=== PATIENT | male | born 1975 | race African-American/Black ===

== ENCOUNTER 2016-11-21 08:34 | Inpatient (IN) | payer MEDICAID, OTHER ==
[~2016-11-21] VITALS: Ht 175.3 cm; Wt 71.0 kg
[2016-11-21] MEDS ORDERED: morphine 4 MG/ML VIAL IV STA ×2 (09:01→12:50)
[2016-11-21] MEDS ORDERED: SOD CHLORIDE 0.9% 1,000 ML IV STA (09:01)
[2016-11-21] MEDS ORDERED: ONDANSETRON 4 MG INJ IV STA ×2 (09:01→12:50)
[2016-11-21 09:30] LABS: BASOPHIL # 0.1 10^3/ul (0.0-0.1); BASOPHILS % 0.8 % (0.0-2.0); EOSINOPHILS # 0.1 10^3/ul (0.0-0.5); EOSINOPHILS % 1.4 % (0.0-7.0); HEMATOCRIT 45.7 % (42.0-52.0); HEMOGLOBIN 15.6 g/dl (14.0-18.0); LYMPHOCYTES # 2.2 10^3/ul (0.8-2.9); LYMPHOCYTES % 34.1 % (15.0-51.0); MEAN CORPUSCULAR HEMOGLOBIN 28.7 pg (29.0-33.0); MEAN CORPUSCULAR HGB CONC 34.3 g/dl (32.0-37.0); MEAN CORPUSCULAR VOLUME 83.6 fl (82.0-101.0); MEAN PLATELET VOLUME 7.3 fl (7.4-10.4); MONOCYTE # 0.3 10^3/ul (0.3-0.9); MONOCYTES % 4.5 % (0.0-11.0); NEUTROPHIL # 3.8 10^3/ul (1.6-7.5); NEUTROPHILS % 59.2 % (39.0-77.0); PLATELET COUNT 303 10^3/UL (140-440); RED BLOOD COUNT 5.46 10^6/ul (4.70-6.10); RED CELL DISTRIBUTION WIDTH 14.9 % (11.5-14.5); UNCORRECTED WBC 6.5 10^3/ul (4.8-10.8); WHITE BLOOD COUNT 6.5 10^3/ul (4.8-10.8)
[2016-11-21 09:33] LABS: ALBUMIN 4.3 g/dl (3.3-4.9); POTASSIUM 3.8 mmol/L (3.5-5.1)
[2016-11-21 09:35] LABS: CONDITION 1; LH ANALYZER COMMENTS 1
[2016-11-21 09:36] LABS: ALBUMIN/GLOBULIN RATIO 1.07; BILIRUBIN,INDIRECT 0.4 mg/dl (0-1.1); BILIRUBIN,TOTAL 0.4 mg/dl (0.2-1.3); CALCIUM 9.3 mg/dl (8.4-10.2); CREATININE 0.9 mg/dl (0.61-1.24); TOTAL PROTEIN 8.3 g/dl (6.1-8.1)
--- NOTE | 2016-11-21 09:50 | RADRPT ---
PROCEDURE: US Abdomen (right upper quadrant). CLINICAL INDICATION: Right upper quadrant abdomen pain. TECHNIQUE: Multiple real-time longitudinal and transverse images of the right upper quadrant of th e abdomen were acquired utilizing a curved array transducer. Images were reviewed on a high-resoluti on PACS workstation. COMPARISON: None FINDINGS: The liver is normal in size and echogenicity. There is no focal hepatic lesion. Color Doppler and pulsed Doppler sonography demonstrate normal a ntegrade flow in the portal vein. The gallbladder is normal with no stones or wall thickening. There is no pericholecystic fluid araceli ection. The bile ducts are normal with the common bile duct measuring 4.3 mm in diameter. The visualized portions of the pancreas are unremarkable with obscuration of the tail of the pancrea s. No free fluid is present. The right kidney measures 10.0 cm. There is normal echogenicity of the right kidney. There is no perinephric fluid collection. No hydronephrosis, mass, or calculus is seen. IMPRESSION: 1. Unremarkable right upper quadrant abdomen ultrasound. RPTAT: QQ .Endy Cunningham MD, MD Date Time Electronically viewed and signed by .Endy Cunningham MD, on 11/21/2016 09:50 .R/
--- NOTE | 2016-11-21 10:32 | ERD ---
ER Documentation Chief Complaint Date/Time DATE: 11/21/16 TIME: 10:27 Chief Complaint abdominal pain since last night HPI Patient is a 41-year-old male who presents to the ED with abdominal pain that started last night. He states that the pain is localized in his epigastric region he denies radiation of pain. He states that he has had this pain in the past, was hospitalized for pancreatitis. He denies nausea, vomiting or diarrhea. He denies constipation. He is not taking anything for his symptoms. Denies chest pain, cough or shortness of breath or difficulty breathing. He denies urinary symptoms. He states that he has a history of alcohol abuse x 10 years. He is trying to cut down on his drinking. States he drinks about 8-10 beers a day. He also has daily marijuana use and 1 pack of cigarettes/day. He denies IV drugs. ROS All systems reviewed and are negative except as per history of present illness. Allergies Allergies: Coded Allergies: No Known Allergy (Unverified , 07/05/16) PMhx/Soc History of Surgery: No Anesthesia Reaction: No Hx Neurological Disorder: No Hx Respiratory Disorders: No Hx Cardiac Disorders: No Hx Psychiatric Problems: No Hx Miscellaneous Medical Probl: Yes (pancreatitis) Hx Alcohol Use: Yes (8-10 beers/day) Hx Substance Use: Yes (daily marijuana) Hx Tobacco Use: Yes (1 pack/day) Smoking Status: Current every day smoker Physical Exam Vitals Vital Signs Date Time Temp Pulse Resp B/P Pulse Ox O2 Delivery O2 Flow Rate FiO2 11/21/16 08:40 97.9 61 18 134/82 100 Physical Exam GENERAL: Well-developed, well-nourished male. Appears in no acute distress. HEAD: Normocephalic, atraumatic. EYES: Pupils are equally reactive bilaterally. EOMs grossly intact. No conjunctival erythema. ENT: Moist mucous membranes. No uvula deviation. No kissing tonsils. No exudates. NECK: Supple. No lymphadenopathy or thyromegaly. No meningismus. negative kernig. negative brudinski. LUNG: Clear to auscultation bilaterally. No rhonchi, wheezing, rales or coarse breath sounds. HEART: Regular rate and rhythm. No murmurs, rubs or gallops. ABDOMEN: No scars, ecchymosis or rashes noted. Soft, and nondistended. Positive bowel sounds in all four quadrants. No rebound tenderness, no guarding. (-) McBurneys point tenderness. No CVA tenderness. tender in epigastric and ruq. BACK: No midline tenderness. Extremities: Equal pulses bilaterally. No peripheral clubbing, cyanosis or edema. No unilateral leg swelling. NEUROLOGIC: Alert and oriented. Moving all four extremities. 5/5 strength in all extremities. Normal speech. Steady gait. SKIN: Normal color. Warm and dry. No rashes or lesions. Capillary refill < 2 seconds Result Diagram: 11/21/1612 11/21/1612 Results 24 hrs Laboratory Tests Test 11/21/16 09:12 11/21/16 10:50 Alanine Aminotransferase (ALT/SGPT) 36IU/L Albumin 4.3g/dl Albumin/Globulin Ratio 1.07 Alkaline Phosphatase 75IU/L Anion Gap 16 Aspartate Amino Transf (AST/SGOT) 44IU/L Basophils # 0.110^3/ul Basophils % 0.8% Blood Morphology Comment Blood Urea Nitrogen 10mg/dl Calcium Level 9.3mg/dl Carbon Dioxide Level 26mmol/L Chloride Level 102mmol/L Creatinine 0.90mg/dl Direct Bilirubin 0.00mg/dl Eosinophils # 0.110^3/ul Eosinophils % 1.4% Globulin 4.00g/dl Glucose Level 111mg/dl Hematocrit 45.7% Hemoglobin 15.6g/dl Indirect Bilirubin 0.4mg/dl Lipase 303U/L Lymphocytes # 2.210^3/ul Lymphocytes % 34.1% Mean Corpuscular Hemoglobin 28.7pg Mean Corpuscular Hemoglobin Concent 34.3g/dl Mean Corpuscular Volume 83.6fl Mean Platelet Volume 7.3fl Monocytes # 0.310^3/ul Monocytes % 4.5% Neutrophils # 3.810^3/ul Neutrophils % 59.2% Nucleated Red Blood Cells # 0.010^3/ul Nucleated Red Blood Cells % 0.0/100WBC Platelet Count 55439^3/UL Potassium Level 3.8mmol/L Red Blood Count 5.4610^6/ul Red Cell Distribution Width 14.9% Sodium Level 140mmol/L Total Bilirubin 0.4mg/dl Total Protein 8.3g/dl White Blood Count 6.510^3/ul Urine Bilirubin NEGATIVE Urine Clarity CLEAR Urine Color LT. YELLOW Urine Glucose NEGATIVE% Urine Hemoglobin NEGATIVE Urine Ketones NEGATIVE Urine Leukocyte Esterase NEGATIVE Urine Nitrite NEGATIVE Urine Specific [place] 1.020 Urine Total Protein NEGATIVE Urine Urobilinogen 0.2 E.U./dL Urine pH 6.0 Current Medications Medications (Trade) Dose Ordered Sig/Fatuma Route PRN Reason Start Time Stop Time Status Last Admin Dose Admin Sodium Chloride (NS) 1,000 ml @ 1,000 mls/hr Q1H STAT IV 11/21/16 09:01 11/21/16 10:00 DC 11/21/16 09:20 Morphine Sulfate (morphine) 4 mg ONCE STAT IV 11/21/16 09:01 11/21/16 09:03 DC 11/21/16 09:20 Ondansetron HCl (Zofran Inj) 4 mg ONCE STAT IV 11/21/16 09:01 11/21/16 09:03 DC 11/21/16 09:19 Morphine Sulfate (morphine) 4 mg ONCE STAT IV 11/21/16 12:50 11/21/16 12:51 DC 11/21/16 13:30 Ondansetron HCl (Zofran Inj) 4 mg ONCE STAT IV 11/21/16 12:50 11/21/16 12:51 DC 11/21/16 13:29 Procedures/MDM ER COURSE: I kept the patient and/or family informed of laboratory and diagnostic imaging results throughout the emergency room course. EKG, MONITORS, & DIAGNOSTIC IMAGING: [place] [address] Radiology Main Line: [phone] DIAGNOSTIC IMAGING REPORT Patient: ENRICO COLORADO : 1975 Age: 41 Sex: M MR #: [id number] DOS: 11/21/16 0901 Ordering MD: LISA SIDDIQUI PA-C Location: [facility] Room/Bed: PROCEDURE: US Abdomen (right upper quadrant). CLINICAL INDICATION: Right upper quadrant abdomen pain. TECHNIQUE: Multiple real-time longitudinal and transverse images of the right upper quadrant of the abdomen were acquired utilizing a curved array transducer. Images were reviewed on a high-resolution PACS workstation. COMPARISON: None FINDINGS: The liver is normal in size and echogenicity. There is no focal hepatic lesion. Color Doppler and pulsed Doppler sonography demonstrate normal antegrade flow in the portal vein. The gallbladder is normal with no stones or wall thickening. There is no pericholecystic fluid collection. The bile ducts are normal with the common bile duct measuring 4.3 mm in diameter. The visualized portions of the pancreas are unremarkable with obscuration of the tail of the pancreas. No free fluid is present. The right kidney measures 10.0 cm. There is normal echogenicity of the right kidney. There is no perinephric fluid collection. No hydronephrosis, mass, or calculus is seen. IMPRESSION: 1. Unremarkable right upper quadrant abdomen ultrasound. RPTAT: QQ .Endy Cunningham MD, Date Time Electronically viewed and signed by .Endy Cunningham MD, MD on 11/21/2016 09:50 .R/ CC: LISA SIDDIQUI PA-C [place] [address] Radiology Main Line: [phone] DIAGNOSTIC IMAGING REPORT Patient: ENRICO COLORADO : 1975 Age: 41 Sex: M MR #: [id number] DOS: 11/21/16 1024 Ordering MD: LISA SIDDIQUI PA-C Location: [facility] Room/Bed: PROCEDURE: CT Abdomen and Pelvis without contrast. CLINICAL INDICATION: Abdominal pelvic pain. Possible pancreatitis. TECHNIQUE: CT scan of the abdomen and pelvis without contrast was performed on a multidetector high-resolution CT scanner. The patient was scanned without intravenous contrast. Coronal and sagittal reformatted images were obtained from the axial source images. Images were reviewed on a high-resolution PACS workstation. The total exam CTDI equals 8.34 mGy and the total exam DLP equals 464.72 mGy-cm. One or more of the following dose reduction techniques were used: - Automated exposure control. - Adjustment of the mA and/or kV according to patient size. - Use of iterative reconstruction technique. COMPARISON: CT scan dated 07/05/2016; ultrasound RUQ dated 11/21/2016 FINDINGS: CT abdomen: The lung bases are clear. The heart size is normal, without pericardial thickening or effusion. The liver is normal in size and density without focal mass or intrahepatic biliary dilatation. The spleen is normal in size and homogeneous in density. The stomach is partially collapsed, but is grossly unremarkable. The pancreas as visualized is remarkable for stranding and edema of the mesentery located just anterior to the pancreas, similar in appearance to the prior study. Mild biliary dilatation is seen adjacent to the pancreas. Cholelithiasis is not excluded, and evaluation is limited due to lack of IV contrast. No focal fluid collection or abscess is identified. The gallbladder and biliary tree are unremarkable and there is no evidence for biliary dilatation. The adrenal glands are symmetric and normal. Benign calcifications of the adrenal glands are noted, stable over time. The kidneys are symmetrically unremarkable as well. 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 No renal calculus or obstructive uropathy or mass lesion is seen. The aorta is of normal caliber. Aortic vascular calcifications are present. There is no retroperitoneal lymphadenopathy. The boaz hepatis region is clear. The bowel and mesentery, as visualized, are equally unremarkable. The appendix is located high within the right upper quadrant of the abdomen within the right subhepatic space, and is normal in appearance. CT pelvis: The small bowel loops situated within the pelvis are unremarkable. The pelvic organs are normal. The pelvic sidewalls and inguinal regions are clear. The sigmoid colon and rectum are unremarkable. Small left posterior perianal fistula extending to the left inferior medial perineum and buttock fold is identified stable over time. No mass or adenopathy is seen. No free fluid is present. Numerous benign phleboliths are seen within the pelvis. The surrounding osseous structures are remarkable for degenerative spondylosis of the spine. No osteolytic or osteoblastic lesion is detected. IMPRESSION: 1. Stranding and edema located anterior to the pancreas consistent with acute pancreatitis. 2. Mild extrahepatic biliary dilatation, poorly evaluated at this time. Consider MRCP for more complete assessment, as deemed clinically appropriate. 3. Left posterior inferior perianal fistula, stable over time. RPTAT: HMJB .Rakesh Scherer MD, MD Date Time Electronically viewed and signed by .Rakesh Scherer MD, MD on 11/21/2016 13:45 .B/ CC: LISA SIDDIQUI PA-C MEDICATIONS: IV Fluids, zofran, morphine LAB INTERPRETATION: CBC showed no evidence of systemic infection or severe anemia. CMP showed no evidence of electrolyte abnormalities, severe acidosis, alkalosis , renal failure, or liver disease. Lipase showed no evidence of acute pancreatitis. Lipase is increased to 303. UA showed no evidence of acute infection or hematuria. MEDICAL DECISION MAKING: This is a 41-year-old male who presents with abdominal pain. Vital signs were reviewed. Patient is afebrile. Patient is not hypoxic. CT scan as read by radiologist shows stranding and edema located anterior to the pancreas consistent with acute pancreatitis. Mild extrahepatic biliary dilatation. I have consulted with Dr. Carmona who will be admitting the patient. Dr. Carmona has ordered dilaudid. Patient will be transferred to ED1. Patient is stable at transfer with no new complaints. Departure Diagnosis: Primary Impression: Pancreatitis Chronicity: acute Pancreatitis type: unspecified pancreatitis type Acute pancreatitis complication: unspecified Qualified Code: K85.90 - Acute pancreatitis, unspecified complication status, unspecified pancreatitis type Condition: Stable Patient Instructions: Abdominal Pain Additional Instructions: Call your primary care doctor TOMORROW for an appointment during the next 1-2 days.See the doctor sooner or return here if your condition worsens before your appointment time. LISA SIDDIQUI PA-C Nov 21, 2016 10:32
[2016-11-21 11:10] LABS: ADD UMIC NO; URINE BILIRUBIN (Dip) NEGATIVE (NEGATIVE); URINE BLOOD (Dip) NEGATIVE (NEGATIVE); URINE COLOR LT. YELLOW (YELLOW); URINE GLUCOSE (Dip) NEGATIVE (NEGATIVE); URINE KETONES (Dip) NEGATIVE (NEGATIVE); URINE LEUKOCYTE ESTERASE (Dip) NEGATIVE (NEGATIVE); URINE NITRITE (Dip) NEGATIVE (NEGATIVE); URINE TOTAL PROTEIN (Dip) NEGATIVE (NEGATIVE); URINE UROBILINOGEN (Dip) 0.2 E.U./dL (0.1-1.0)
--- NOTE | 2016-11-21 11:40 | ERD ---
ER Documentation Chief Complaint Date/Time DATE: 11/21/16 TIME: 10:21 Chief Complaint abdominal pain since last night HPI Patient is a 41 year old male who presents to the ED with epigastric pain x 1 day. He states that he has had this pain in the past and has had pancreatitis. He ROS All systems reviewed and are negative except as per history of present illness. Allergies Allergies: Coded Allergies: No Known Allergy (Unverified , 07/05/16) PMhx/Soc History of Surgery: No Anesthesia Reaction: No Hx Neurological Disorder: No Hx Respiratory Disorders: No Hx Cardiac Disorders: No Hx Psychiatric Problems: No Hx Miscellaneous Medical Probl: No Hx Alcohol Use: No Hx Substance Use: No Hx Tobacco Use: No Smoking Status: Never smoker Physical Exam Vitals Vital Signs Date Time Temp Pulse Resp B/P Pulse Ox O2 Delivery O2 Flow Rate FiO2 11/21/16 08:40 97.9 61 18 134/82 100 Physical Exam Const: [] Head: Atraumatic Eyes: Normal Conjunctiva ENT: Normal External Ears, Nose and Mouth. Neck: Full range of motion..~ No meningismus. Resp: Clear to auscultation bilaterally Cardio: Regular rate and rhythm, no murmurs Abd: Soft, non tender, non distended. Normal bowel sounds Skin: No petechiae or rashes Back: No midline or flank tenderness Ext: No cyanosis, or edema Neur: Awake and alert Psych: Normal Mood and Affect Result Diagram: 11/21/1691111/21/1612 Results 24 hrs Laboratory Tests Test 11/21/16 09:12 Alanine Aminotransferase (ALT/SGPT) 36IU/L Albumin 4.3g/dl Albumin/Globulin Ratio 1.07 Alkaline Phosphatase 75IU/L Anion Gap 16 Aspartate Amino Transf (AST/SGOT) 44IU/L Basophils # 0.110^3/ul Basophils % 0.8% Blood Morphology Comment Blood Urea Nitrogen 10mg/dl Calcium Level 9.3mg/dl Carbon Dioxide Level 26mmol/L Chloride Level 102mmol/L Creatinine 0.90mg/dl Direct Bilirubin 0.00mg/dl Eosinophils # 0.110^3/ul Eosinophils % 1.4% Globulin 4.00g/dl Glucose Level 111mg/dl Hematocrit 45.7% Hemoglobin 15.6g/dl Indirect Bilirubin 0.4mg/dl Lipase 303U/L Lymphocytes # 2.210^3/ul Lymphocytes % 34.1% Mean Corpuscular Hemoglobin 28.7pg Mean Corpuscular Hemoglobin Concent 34.3g/dl Mean Corpuscular Volume 83.6fl Mean Platelet Volume 7.3fl Monocytes # 0.310^3/ul Monocytes % 4.5% Neutrophils # 3.810^3/ul Neutrophils % 59.2% Nucleated Red Blood Cells # 0.010^3/ul Nucleated Red Blood Cells % 0.0/100WBC Platelet Count 98359^3/UL Potassium Level 3.8mmol/L Red Blood Count 5.4610^6/ul Red Cell Distribution Width 14.9% Sodium Level 140mmol/L Total Bilirubin 0.4mg/dl Total Protein 8.3g/dl White Blood Count 6.510^3/ul Current Medications Medications (Trade) Dose Ordered Sig/Fatuma Route PRN Reason Start Time Stop Time Status Last Admin Dose Admin Sodium Chloride (NS) 1,000 ml @ 1,000 mls/hr Q1H STAT IV 11/21/16 09:01 11/21/16 10:00 DC 11/21/16 09:20 Morphine Sulfate (morphine) 4 mg ONCE STAT IV 11/21/16 09:01 11/21/16 09:03 DC 11/21/16 09:20 Ondansetron HCl (Zofran Inj) 4 mg ONCE STAT IV 11/21/16 09:01 11/21/16 09:03 DC 11/21/16 09:19 Departure Diagnosis: Primary Impression: Abdominal pain Abdominal location: epigastric Qualified Code: R10.13 - Epigastric pain Condition: Stable Patient Instructions: Abdominal Pain Additional Instructions: Call your primary care doctor TOMORROW for an appointment during the next 1-2 days.See the doctor sooner or return here if your condition worsens before your appointment time. LISA SIDDIQUI PA-C Nov 21, 2016 10:31
--- NOTE | 2016-11-21 13:45 | RADRPT ---
PROCEDURE: CT Abdomen and Pelvis without contrast. CLINICAL INDICATION: Abdominal pelvic pain. Possible pancreatitis. TECHNIQUE: CT scan of the abdomen and pelvis without contrast was performed on a multidetector hig h-resolution CT scanner. The patient was scanned without intravenous contrast. Coronal and sagittal reformatted images were obtained from the axial source images. Images were reviewed on a high-resol [employer] PACS workstation. The total exam CTDI equals 8.34 mGy and the total exam DLP equals 464.72 mGy -cm. One or more of the following dose reduction techniques were used: - Automated exposure control. - Adjustment of the mA and/or kV according to patient size. - Use of iterative reconstruction technique. COMPARISON: CT scan dated 07/05/2016; ultrasound RUQ dated 11/21/2016 FINDINGS: CT abdomen: The lung bases are clear. The heart size is normal, without pericardial thickening or effusion. Th e liver is normal in size and density without focal mass or intrahepatic biliary dilatation. The sp gail is normal in size and homogeneous in density. The stomach is partially collapsed, but is gross ly unremarkable. The pancreas as visualized is remarkable for stranding and edema of the mesentery located just anterior to the pancreas, similar in appearance to the prior study. Mild biliary dilat ation is seen adjacent to the pancreas. Cholelithiasis is not excluded, and evaluation is limited d ue to lack of IV contrast. No focal fluid collection or abscess is identified. The gallbladder and biliary tree are unremarkable and there is no evidence for biliary dilatation. The adrenal glands are symmetric and normal. Benign calcifications of the adrenal glands are noted, stable over time. The kidneys are symmetrically unremarkable as well. A tiny incidental 8 mm south omyolipoma is seen in the mid/lower pole cortex of the left kidney, stable over time. No renal calc ulus or obstructive uropathy or mass lesion is seen. The aorta is of normal caliber. Aortic vascular calcifications are present. There is no retroperit damon lymphadenopathy. The boaz hepatis region is clear. The bowel and mesentery, as visualized, are equally unremarkable. The appendix is located high within the right upper quadrant of the abdome n within the right subhepatic space, and is normal in appearance. CT pelvis: The small bowel loops situated within the pelvis are unremarkable. The pelvic organs are normal. T he pelvic sidewalls and inguinal regions are clear. The sigmoid colon and rectum are unremarkable. Small left posterior perianal fistula extending to the left inferior medial perineum and buttock fo ld is identified stable over time. No mass or adenopathy is seen. No free fluid is present. Will us benign phleboliths are seen within the pelvis. The surrounding osseous structures are remarkable for degenerative spondylosis of the spine. No ost eolytic or osteoblastic lesion is detected. IMPRESSION: 1. Stranding and edema located anterior to the pancreas consistent with acute pancreatitis. 2. Mild extrahepatic biliary dilatation, poorly evaluated at this time. Consider MRCP for more comp lete assessment, as deemed clinically appropriate. 3. Left posterior inferior perianal fistula, stable over time. RPTAT: HMJB .Rakesh Scheerr MD, Date Time Electronically viewed and signed by .Rakesh Scherer MD, on 11/21/2016 13:45 .B/
[2016-11-21] MEDS ORDERED: HYDROmorphONE 1 MG/ML SYG IV STA (14:06)
--- NOTE | 2016-11-21 14:10 | QN ---
Documentation Comment My independent concise history is abdominal pain with heavy alcohol use. My pertinent physical exam findings are upper abdominal pain. The plan is admission to Dr. Leiva as the patient has [facility] insurance to a medical surgical bed. JOSE LUIS REYNOSO MD Nov 21, 2016 14:10
[2016-11-21] MEDS ORDERED: ACETAMINOPHEN 325 MG TAB PO PRN (14:30)
[2016-11-21] MEDS ORDERED: ONDANSETRON 4 MG INJ IV PRN ×2 (14:30→15:00)
--- NOTE | 2016-11-21 15:06 | HP ---
Date/Time of Note Date/Time of Note DATE: 11/21/16 TIME: 15:02 Assessment/Plan VTE Prophylaxis VTE Prophylaxis Intervention: ambulation Assessment/Plan Assessment/Plan 1. Acute pancreatitis 2. Alcohol abuse 3. Tobacco abuse PLAN: admit med surg / IVF / Pain control / IV h2 blockers / NPO xcept meds and Ice chips pain control/ antiemetics/ antipyretics/ supportive care Further evaluation and treatment will be based on clinical course Full discussion with care team done. All questions Answered Please also see orders. Total time spent on this evaluation >35mins HPI/ROS Admit Date/Time Admit Date/Time 11/21/15 Hx of Present Illness Patient is a 41-year-old male who presents to the ED with abdominal pain that started last night. He states that the pain is localized in his epigastric region he denies radiation of pain. He states that he has had this pain in the past, was hospitalized for pancreatitis. He denies nausea, vomiting or diarrhea. He denies constipation. He is not taking anything for his symptoms. Denies chest pain, cough or shortness of breath or difficulty breathing. He denies urinary symptoms. He states that he has a history of alcohol abuse x 10 years. He is trying to cut down on his drinking. States he drinks about 8-10 beers a day. He also has daily marijuana use and 1 pack of cigarettes/day. He denies IV drugs. ROS 12 point review if systems was done and pertinent findings are as noted. PMH/Family/Social Past Medical History Medical History: no pertinent history Past Surgical History Past Surgical Hx: no surgical history Social History Alcohol Use: heavy Smoking Status: Current every day smoker Drug Use: marijuana Exam/Review of Systems Vital Signs Vitals VS - Last 72 Hours, by Label Date Time Temp Pulse Resp B/P Pulse Ox O2 Delivery O2 Flow Rate FiO2 11/21/16 08:40 97.9 61 18 134/82 100 Vital Signs Date Time Temp Pulse Resp B/P Pulse Ox O2 Delivery O2 Flow Rate FiO2 11/21/16 08:40 97.9 61 18 134/82 100 Exam Constitutional: alert, distress, oriented Psych: nl mood/affect Head: atraumatic, normocephalic Eyes: PERRL ENMT: mucosa pink and moist Neck: non-tender, supple Respiratory: clear to auscultation, normal air movement Cardiovascular: nl pulses, regular rate and rhythm Gastrointestinal: bowel sounds, soft, tender (mild epigastric tenderness) Musculoskeletal: nl extremities to inspection Extremities: No edema Neurological: lethargic Labs Result Diagram: 11/21/16 0912 11/21/16 0912 Procedures Procedures Laboratory Tests Test 11/21/16 09:12 11/21/16 10:50 Alanine Aminotransferase (ALT/SGPT) 36IU/L Albumin 4.3g/dl Albumin/Globulin Ratio 1.07 Alkaline Phosphatase 75IU/L Anion Gap 16 Aspartate Amino Transf (AST/SGOT) 44IU/L Basophils # 0.110^3/ul Basophils % 0.8% Blood Morphology Comment Blood Urea Nitrogen 10mg/dl Calcium Level 9.3mg/dl Carbon Dioxide Level 26mmol/L Chloride Level 102mmol/L Creatinine 0.90mg/dl Direct Bilirubin 0.00mg/dl Eosinophils # 0.110^3/ul Eosinophils % 1.4% Globulin 4.00g/dl Glucose Level 111mg/dl Hematocrit 45.7% Hemoglobin 15.6g/dl Indirect Bilirubin 0.4mg/dl Lipase 303U/L Lymphocytes # 2.210^3/ul Lymphocytes % 34.1% Mean Corpuscular Hemoglobin 28.7pg Mean Corpuscular Hemoglobin Concent 34.3g/dl Mean Corpuscular Volume 83.6fl Mean Platelet Volume 7.3fl Monocytes # 0.310^3/ul Monocytes % 4.5% Neutrophils # 3.810^3/ul Neutrophils % 59.2% Nucleated Red Blood Cells # 0.010^3/ul Nucleated Red Blood Cells % 0.0/100WBC Platelet Count 15169^3/UL Potassium Level 3.8mmol/L Red Blood Count 5.4610^6/ul Red Cell Distribution Width 14.9% Sodium Level 140mmol/L Total Bilirubin 0.4mg/dl Total Protein 8.3g/dl White Blood Count 6.510^3/ul Urine Bilirubin NEGATIVE Urine Clarity CLEAR Urine Color LT. YELLOW Urine Glucose NEGATIVE% Urine Hemoglobin NEGATIVE Urine Ketones NEGATIVE Urine Leukocyte Esterase NEGATIVE Urine Nitrite NEGATIVE Urine Specific [place] 1.020 Urine Total Protein NEGATIVE Urine Urobilinogen 0.2 E.U./dL Urine pH 6.0 Current Medications Medications (Trade) Dose Ordered Sig/Fatuma Route PRN Reason Start Time Stop Time Status Last Admin Dose Admin Sodium Chloride (NS) 1,000 ml @ 1,000 mls/hr Q1H STAT IV 11/21/16 09:01 11/21/16 10:00 DC 11/21/16 09:20 1,000 MLS/HR Morphine Sulfate (morphine) 4 mg ONCE STAT IV 11/21/16 09:01 11/21/16 09:03 DC 11/21/16 09:20 4 MG Ondansetron HCl (Zofran Inj) 4 mg ONCE STAT IV 11/21/16 09:01 11/21/16 09:03 DC 11/21/16 09:19 4 MG Morphine Sulfate (morphine) 4 mg ONCE STAT IV 11/21/16 12:50 11/21/16 12:51 DC 11/21/16 13:30 4 MG Ondansetron HCl (Zofran Inj) 4 mg ONCE STAT IV 11/21/16 12:50 11/21/16 12:51 DC 11/21/16 13:29 4 MG Hydromorphone HCl (Dilaudid) 1 mg ONCE STAT IV 11/21/16 14:06 11/21/16 14:07 DC 11/21/16 14:14 1 MG Ondansetron HCl (Zofran Inj) 4 mg BRIDGE ORDER PRN IV NAUSEA AND/OR VOMITING 11/21/16 14:30 11/22/16 14:29 Acetaminophen (Tylenol Tab) 650 mg ER BRIDGE PRN PO MILD PAIN/FEVER 11/21/16 14:30 11/22/16 14:29 PROCEDURE: CT Abdomen and Pelvis without contrast. CLINICAL INDICATION: Abdominal pelvic pain. Possible pancreatitis. TECHNIQUE: CT scan of the abdomen and pelvis without contrast was performed on a multidetector high-resolution CT scanner. The patient was scanned without intravenous contrast. Coronal and sagittal reformatted images were obtained from the axial source images. Images were reviewed on a high-resolution PACS workstation. The total exam CTDI equals 8.34 mGy and the total exam DLP equals 464.72 mGy-cm. One or more of the following dose reduction techniques were used: - Automated exposure control. - Adjustment of the mA and/or kV according to patient size. - Use of iterative reconstruction technique. COMPARISON: CT scan dated 07/05/2016; ultrasound RUQ dated 11/21/2016 FINDINGS: CT abdomen: The lung bases are clear. The heart size is normal, without pericardial thickening or effusion. The liver is normal in size and density without focal mass or intrahepatic biliary dilatation. The spleen is normal in size and homogeneous in density. The stomach is partially collapsed, but is grossly unremarkable. The pancreas as visualized is remarkable for stranding and edema of the mesentery located just anterior to the pancreas, similar in appearance to the prior study. Mild biliary dilatation is seen adjacent to the pancreas. Cholelithiasis is not excluded, and evaluation is limited due to lack of IV contrast. No focal fluid collection or abscess is identified. The gallbladder and biliary tree are unremarkable and there is no evidence for biliary dilatation. The adrenal glands are symmetric and normal. Benign calcifications of the adrenal glands are noted, stable over time. The kidneys are symmetrically unremarkable as well. 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 No renal calculus or obstructive uropathy or mass lesion is seen. The aorta is of normal caliber. Aortic vascular calcifications are present. There is no retroperitoneal lymphadenopathy. The boaz hepatis region is clear. The bowel and mesentery, as visualized, are equally unremarkable. The appendix is located high within the right upper quadrant of the abdomen within the right subhepatic space, and is normal in appearance. CT pelvis: The small bowel loops situated within the pelvis are unremarkable. The pelvic organs are normal. The pelvic sidewalls and inguinal regions are clear. The sigmoid colon and rectum are unremarkable. Small left posterior perianal fistula extending to the left inferior medial perineum and buttock fold is identified stable over time. No mass or adenopathy is seen. No free fluid is present. Numerous benign phleboliths are seen within the pelvis. The surrounding osseous structures are remarkable for degenerative spondylosis of the spine. No osteolytic or osteoblastic lesion is detected. IMPRESSION: 1. Stranding and edema located anterior to the pancreas consistent with acute pancreatitis. 2. Mild extrahepatic biliary dilatation, poorly evaluated at this time. Consider MRCP for more complete assessment, as deemed clinically appropriate. 3. Left posterior inferior perianal fistula, stable over time. RPTAT: HMJB .Rakesh Scherer MD, MD Date Time Electronically viewed and signed by .Rakesh Scherer MD, MD on 11/21/2016 13:45 .B/ PROCEDURE: US Abdomen (right upper quadrant). CLINICAL INDICATION: Right upper quadrant abdomen pain. TECHNIQUE: Multiple real-time longitudinal and transverse images of the right upper quadrant of the abdomen were acquired utilizing a curved array transducer. Images were reviewed on a high-resolution PACS workstation. COMPARISON: None FINDINGS: The liver is normal in size and echogenicity. There is no focal hepatic lesion. Color Doppler and pulsed Doppler sonography demonstrate normal antegrade flow in the portal vein. The gallbladder is normal with no stones or wall thickening. There is no pericholecystic fluid collection. The bile ducts are normal with the common bile duct measuring 4.3 mm in diameter. The visualized portions of the pancreas are unremarkable with obscuration of the tail of the pancreas. No free fluid is present. The right kidney measures 10.0 cm. There is normal echogenicity of the right kidney. There is no perinephric fluid collection. No hydronephrosis, mass, or calculus is seen. IMPRESSION: 1. Unremarkable right upper quadrant abdomen ultrasound. RPTAT: QQ .Endy Cunningham MD, MD Date Time Electronically viewed and signed by .Endy Cunningham MD, MD on 11/21/2016 09:50 .VERONICA LE Nov 21, 2016 15:06
[2016-11-21 15:26] VITALS: TEMP 97
[2016-11-21 17:53] VITALS: Ht 175.3 cm; Wt 71.0 kg
[2016-11-21 18:04] VITALS: BP 160/90; PULSE 49; RESP 18
[2016-11-21] MEDS: SOD CHLORIDE 0.9% 1,000 ML IV SCH ×2 (18:38→21:40)
[2016-11-21] MEDS: HYDROCODONE/APAP (5/325) TAB PO PRN (18:39)
[2016-11-21] MEDS: FAMOTIDINE 20 MG INJ IV SCH ×2 (18:39→21:15)
[2016-11-21 20:02] VITALS: BP 155/94; RESP 18
[2016-11-21] MEDS: DOCUSATE SODIUM 100 MG CAP PO SCH (21:15)
[2016-11-21] MEDS: CHLORDIAZEPOXIDE 25 MG CAP PO SCH (21:15)
[2016-11-21] MEDS: morphine 2 MG INJ IV PRN (22:10)
[2016-11-22] MEDS: SOD CHLORIDE 0.9% 1,000 ML IV SCH ×3 (01:57→17:52)
[2016-11-22] MEDS: morphine 2 MG INJ IV PRN ×2 (05:26→17:54)
[2016-11-22 06:07] LABS: BASOPHILS % 0.5 % (0.0-2.0); EOSINOPHILS # 0.1 10^3/ul (0.0-0.5); EOSINOPHILS % 1.5 % (0.0-7.0); HEMATOCRIT 43.6 % (42.0-52.0); HEMOGLOBIN 15.1 g/dl (14.0-18.0); LYMPHOCYTES # 2.4 10^3/ul (0.8-2.9); LYMPHOCYTES % 35.2 % (15.0-51.0); MEAN CORPUSCULAR HEMOGLOBIN 29.3 pg (29.0-33.0); MEAN CORPUSCULAR HGB CONC 34.5 g/dl (32.0-37.0); MEAN PLATELET VOLUME 7.6 fl (7.4-10.4); MONOCYTE # 0.6 10^3/ul (0.3-0.9); NEUTROPHIL # 3.6 10^3/ul (1.6-7.5); NEUTROPHILS % 53.8 % (39.0-77.0); PLATELET COUNT 284 10^3/UL (140-440); RED BLOOD COUNT 5.13 10^6/ul (4.70-6.10); RED CELL DISTRIBUTION WIDTH 14.4 % (11.5-14.5); UNCORRECTED WBC 6.8 10^3/ul (4.8-10.8); WHITE BLOOD COUNT 6.8 10^3/ul (4.8-10.8)
[2016-11-22 06:21] LABS: ALBUMIN 3.5 g/dl (3.3-4.9)
[2016-11-22 06:22] LABS: POTASSIUM 4.5 mmol/L (3.5-5.1)
[2016-11-22 06:23] LABS: CONDITION 1
[2016-11-22 06:24] LABS: BILIRUBIN,INDIRECT 0.4 mg/dl (0-1.1); BILIRUBIN,TOTAL 0.4 mg/dl (0.2-1.3); CREATININE 0.88 mg/dl (0.61-1.24); TOTAL PROTEIN 6.8 g/dl (6.1-8.1)
[2016-11-22 06:25] LABS: CALCIUM 8.8 mg/dl (8.4-10.2)
[2016-11-22 08:19] VITALS: BP 134/89; RESP 18
[2016-11-22] MEDS: FAMOTIDINE 20 MG INJ IV SCH ×2 (08:36→21:31)
[2016-11-22] MEDS: CHLORDIAZEPOXIDE 25 MG CAP PO SCH ×3 (08:36→21:31)
[2016-11-22] MEDS: HYDROCODONE/APAP (5/325) TAB PO PRN (08:36)
[2016-11-22] MEDS: DOCUSATE SODIUM 100 MG CAP PO SCH ×2 (08:36→21:31)
[2016-11-22] MEDS: MULTIVITAMINS 10 ML, THIAMINE 100 MG, FOLIC ACID 1 MG in SOD CHLORIDE 0.9% 1,000 ML IVPB SCH (10:03)
--- NOTE | 2016-11-22 12:23 | PN ---
Date/Time of Note Date/Time of Note DATE: 11/22/16 TIME: 12:21 Assessment/Plan VTE Prophylaxis VTE Prophylaxis Intervention: SCD's Lines/Catheters IV Catheter Type (from Nrsg): Saline Lock Urinary Cath still in place: No Assessment/Plan Assessment/Plan 1. Acute pancreatitis 2. Alcohol abuse 3. Tobacco abuse PLAN: Continue IVF / Pain control Lipase levels increasing / change to PPI / Will start CLD however at patient's request and downgrade at the first sign of pain Continue antiemetics/ antipyretics if needed / supportive care Tobacco and alcohol cessation counselling done and will continue to be reinforced throughout hospitalization. bulbs farmworker to provide resources Further evaluation and treatment will be based on clinical course Full discussion with care team done. All questions Answered Please also see orders. Subjective 24 Hr Interval Summary Free Text/Dictation Patient seen and examined. Very hungry Reports minimal epigastric pain 12/08 Exam/Review of Systems Vital Signs Vitals Vital Signs Date Time Temp Pulse Resp B/P Pulse Ox O2 Delivery O2 Flow Rate FiO2 11/22/16 08:19 97.8 59 18 134/89 100 11/21/16 18:04 Room Air Exam Constitutional: alert, oriented, No distress Head: atraumatic, normocephalic Eyes: PERRL, No icteric Neck: supple Respiratory: clear to auscultation, normal air movement Cardiovascular: regular rate and rhythm, No murmurs/extra sounds Gastrointestinal: bowel sounds, non-tender, soft Extremities: No edema Neurological: nl mental status, nl speech, nl strength Results Result Diagram: 11/22/16 0450 11/22/16 0450 Results 24 hrs Laboratory Tests Test 11/22/16 04:50 Alanine Aminotransferase (ALT/SGPT) 27 Albumin 3.5 Alkaline Phosphatase 57 Amylase Level 133 H Anion Gap 12 Aspartate Amino Transf (AST/SGOT) 30 Basophils # 0.0 Basophils % 0.5 Blood Urea Nitrogen 5 L Calcium Level 8.8 Carbon Dioxide Level 28 Chloride Level 104 Creatinine 0.88 Direct Bilirubin 0.00 Eosinophils # 0.1 Eosinophils % 1.5 Glucose Level 93 Hematocrit 43.6 Hemoglobin 15.1 Indirect Bilirubin 0.4 Lipase 757 H Lymphocytes # 2.4 Lymphocytes % 35.2 Magnesium Level 2.0 Mean Corpuscular Hemoglobin 29.3 Mean Corpuscular Hemoglobin Concent 34.5 Mean Corpuscular Volume 85.0 Mean Platelet Volume 7.6 Monocytes # 0.6 Monocytes % 9.0 Neutrophils # 3.6 Neutrophils % 53.8 Nucleated Red Blood Cells # 0.0 Nucleated Red Blood Cells % 0.0 Platelet Count 284 Potassium Level 4.5 Red Blood Count 5.13 Red Cell Distribution Width 14.4 Sodium Level 139 Total Bilirubin 0.4 Total Protein 6.8 # White Blood Count 6.8 Medications Medications Current Medications Sodium Chloride (NS) 1,000 ml @ 150 mls/hr Q6H40M IV Last administered on 11/22 01:57; Admin Dose 150 MLS/HR; Start 11/21/16 at 15:00 Famotidine (Pepcid Iv) 20 mg BID IV Last administered on 11/22/16 08:36; Admin Dose 20 MG; Start 11/21/16 at 15:00 Ondansetron HCl (Zofran Inj) 4 mg Q6H PRN IV NAUSEA AND/OR VOMITING; Start at 15:00 Acetaminophen/ Hydrocodone Bitart ([place] (5/325)) 1 tab Q6H PRN PO pain Last administered on 11/22/16 08:36; Admin Dose 1 TAB; Start 11/21/16 at 15:00 Docusate Sodium (Colace) 100 mg BID PO Last administered on 11/22/16 08:36; Admin Dose 100 MG; Start 11/21/16 at 21:00 Chlordiazepoxide 25 mg 25 mg TID PO Last administered on 11/22/16 08:36; Admin Dose 25 MG; Start 11/21/16 at 21:00 Multivitamins/ Thiamine HCl/ Folic Acid/Sodium Chloride (Mvi-12 Adult/ Vitamin B1/Folic Acid/NS) 1,011.2 ml @ 125 mls/ hr DAILY@09 IVPB Last administered on 11/22/16 10:03; Admin Dose 125 MLS/HR; Start 11/22/16 at 09:00 Morphine Sulfate (morphine) 2 mg Q6H PRN IV pain Last administered on 05:26; Admin Dose 2 MG; Start 11/21/16 at 15:00 VERONICA NDIAYE Nov 22, 2016 12:22
[2016-11-22 20:00] VITALS: BP 116/76; RESP 19
[2016-11-23] MEDS: SOD CHLORIDE 0.9% 1,000 ML IV SCH ×4 (02:25→20:20)
[2016-11-23 05:24] LABS: BASOPHILS % 0.6 % (0.0-2.0); EOSINOPHILS # 0.1 10^3/ul (0.0-0.5); EOSINOPHILS % 1.7 % (0.0-7.0); HEMATOCRIT 45.3 % (42.0-52.0); HEMOGLOBIN 15.3 g/dl (14.0-18.0); LYMPHOCYTES # 2.9 10^3/ul (0.8-2.9); LYMPHOCYTES % 44.8 % (15.0-51.0); MEAN CORPUSCULAR HGB CONC 33.9 g/dl (32.0-37.0); MEAN CORPUSCULAR VOLUME 85.8 fl (82.0-101.0); MEAN PLATELET VOLUME 7.5 fl (7.4-10.4); MONOCYTE # 0.6 10^3/ul (0.3-0.9); MONOCYTES % 8.9 % (0.0-11.0); NEUTROPHIL # 2.9 10^3/ul (1.6-7.5); PLATELET COUNT 283 10^3/UL (140-440); RED BLOOD COUNT 5.28 10^6/ul (4.70-6.10); RED CELL DISTRIBUTION WIDTH 14.8 % (11.5-14.5); UNCORRECTED WBC 6.5 10^3/ul (4.8-10.8); WHITE BLOOD COUNT 6.5 10^3/ul (4.8-10.8)
[2016-11-23 05:30] LABS: POTASSIUM 3.7 mmol/L (3.5-5.1)
[2016-11-23 05:33] LABS: CREATININE 0.68 mg/dl (0.61-1.24)
[2016-11-23 05:34] LABS: CALCIUM 8.6 mg/dl (8.4-10.2)
[2016-11-23 06:14] LABS: CONDITION 1; LH ANALYZER COMMENTS 1
[2016-11-23] MEDS: FAMOTIDINE 20 MG INJ IV SCH (08:12)
[2016-11-23] MEDS: CHLORDIAZEPOXIDE 25 MG CAP PO SCH ×3 (08:12→21:35)
[2016-11-23] MEDS: DOCUSATE SODIUM 100 MG CAP PO SCH ×2 (08:12→21:35)
[2016-11-23] MEDS: MULTIVITAMINS 10 ML, THIAMINE 100 MG, FOLIC ACID 1 MG in SOD CHLORIDE 0.9% 1,000 ML IVPB SCH (08:13)
[2016-11-23 08:34] VITALS: BP 165/97; RESP 20
[2016-11-23] MEDS: HYDROCODONE/APAP (5/325) TAB PO PRN ×2 (11:18→17:46)
--- NOTE | 2016-11-23 13:02 | PN ---
Date/Time of Note Date/Time of Note DATE: 11/23/16 TIME: 13:01 Assessment/Plan VTE Prophylaxis VTE Prophylaxis Intervention: ambulation Lines/Catheters IV Catheter Type (from Nrsg): Saline Lock Urinary Cath still in place: No Assessment/Plan Assessment/Plan 1. Acute pancreatitis 2. Alcohol abuse 3. Tobacco abuse PLAN: Continue IVF / Pain control Lipase levels still increasing / change to PPI / Continue Clear liquids for now downgrade at the first sign of pain Continue antiemetics/ antipyretics if needed / supportive care Tobacco and alcohol cessation counselling done and will continue to be reinforced throughout hospitalization. material worker to provide resources Further evaluation and treatment will be based on clinical course Full discussion with care team done. All questions Answered Please also see orders. Subjective 24 Hr Interval Summary Free Text/Dictation Patient seen and examined. feels better and would like regular diet, still had some pain overnight however Exam/Review of Systems Vital Signs Vitals Vital Signs Date Time Temp Pulse Resp B/P Pulse Ox O2 Delivery O2 Flow Rate FiO2 11/23/16 08:34 97.9 73 20 165/97 98 11/21/16 18:04 Room Air Intake and Output 11/22/16 11/22/16 11/23/16 15:00 23:00 07:00 Intake Total 980 ml 1720 ml Balance 980 ml 1720 ml Exam Constitutional: alert, oriented, ambulant in hallway No distress Head: atraumatic, normocephalic Eyes: PERRL, No icteric Neck: supple Respiratory: clear to auscultation, normal air movement Cardiovascular: regular rate and rhythm, No murmurs/extra sounds Gastrointestinal: bowel sounds, non-tender, soft Extremities: No edema Neurological: nl mental status, nl speech, nl strength Results Result Diagram: 11/23/16 0445 11/23/16 0500 Results 24 hrs Laboratory Tests Test 11/23/16 04:45 11/23/16 05:00 Basophils # 0.0 Basophils % 0.6 Blood Morphology Comment Eosinophils # 0.1 Eosinophils % 1.7 Hematocrit 45.3 Hemoglobin 15.3 Lymphocytes # 2.9 Lymphocytes % 44.8 Mean Corpuscular Hemoglobin 29.0 Mean Corpuscular Hemoglobin Concent 33.9 Mean Corpuscular Volume 85.8 Mean Platelet Volume 7.5 Monocytes # 0.6 Monocytes % 8.9 Neutrophils # 2.9 Neutrophils % 44.0 Nucleated Red Blood Cells # 0.0 Nucleated Red Blood Cells % 0.0 Platelet Count 283 Red Blood Count 5.28 Red Cell Distribution Width 14.8 H White Blood Count 6.5 Anion Gap 15 Blood Urea Nitrogen 3 L Calcium Level 8.6 Carbon Dioxide Level 25 Chloride Level 106 Creatinine 0.68 Glucose Level 87 Lipase 868 H Potassium Level 3.7 Sodium Level 142 Medications Medications Current Medications Sodium Chloride (NS) 1,000 ml @ 150 mls/hr Q6H40M IV Last administered on 11/23 08:12; Admin Dose 150 MLS/HR; Start 11/21/16 at 15:00 Famotidine (Pepcid Iv) 20 mg BID IV Last administered on 11/23/16 08:12; Admin Dose 20 MG; Start 11/21/16 at 15:00 Ondansetron HCl (Zofran Inj) 4 mg Q6H PRN IV NAUSEA AND/OR VOMITING; Start at 15:00 Acetaminophen/ Hydrocodone Bitart ([place] (5/325)) 1 tab Q6H PRN PO pain Last administered on 11/23/16 11:18; Admin Dose 1 TAB; Start 11/21/16 at 15:00 Docusate Sodium (Colace) 100 mg BID PO Last administered on 11/23/16 08:12; Admin Dose 100 MG; Start 11/21/16 at 21:00 Chlordiazepoxide 25 mg 25 mg TID PO Last administered on 11/23/16 08:12; Admin Dose 25 MG; Start 11/21/16 at 21:00 Multivitamins/ Thiamine HCl/ Folic Acid/Sodium Chloride (Mvi-12 Adult/ Vitamin B1/Folic Acid/NS) 1,011.2 ml @ 125 mls/ hr DAILY@09 IVPB Last administered on 11/23/16 08:13; Admin Dose 125 MLS/HR; Start 11/22/16 at 09:00 Morphine Sulfate (morphine) 2 mg Q6H PRN IV pain Last administered on 17:54; Admin Dose 2 MG; Start 11/21/16 at 15:00 VERONICA NDIAYE Nov 23, 2016 13:02
[2016-11-23] MEDS: PANTOPRAZOLE 40 MG INJ IV SCH (13:30)
[2016-11-23] MEDS: morphine 2 MG INJ IV PRN ×2 (13:30→21:41)
[2016-11-23 19:30] VITALS: BP 134/88; PULSE 63; RESP 19
[2016-11-23 20:00] VITALS: BP 134/88; RESP 19
[2016-11-24] MEDS: SOD CHLORIDE 0.9% 1,000 ML IV SCH (01:33)
[2016-11-24] MEDS: HYDROCODONE/APAP (5/325) TAB PO PRN ×2 (01:41→09:45)
[2016-11-24] MEDS: PANTOPRAZOLE 40 MG INJ IV SCH (05:13)
[2016-11-24 06:36] LABS: POTASSIUM 4.1 mmol/L (3.5-5.1)
[2016-11-24 06:39] LABS: CREATININE 0.81 mg/dl (0.61-1.24)
[2016-11-24 06:40] LABS: CALCIUM 8.8 mg/dl (8.4-10.2)
[2016-11-24 06:52] LABS: BASOPHILS % 0.5 % (0.0-2.0); EOSINOPHILS # 0.1 10^3/ul (0.0-0.5); EOSINOPHILS % 2.7 % (0.0-7.0); HEMATOCRIT 39.5 % (42.0-52.0); HEMOGLOBIN 13.5 g/dl (14.0-18.0); LYMPHOCYTES # 2.4 10^3/ul (0.8-2.9); LYMPHOCYTES % 46.3 % (15.0-51.0); MEAN CORPUSCULAR HEMOGLOBIN 29.2 pg (29.0-33.0); MEAN CORPUSCULAR HGB CONC 34.2 g/dl (32.0-37.0); MEAN CORPUSCULAR VOLUME 85.6 fl (82.0-101.0); MEAN PLATELET VOLUME 7.8 fl (7.4-10.4); MONOCYTE # 0.6 10^3/ul (0.3-0.9); MONOCYTES % 10.8 % (0.0-11.0); NEUTROPHIL # 2.1 10^3/ul (1.6-7.5); NEUTROPHILS % 39.7 % (39.0-77.0); PLATELET COUNT 273 10^3/UL (140-440); RED BLOOD COUNT 4.62 10^6/ul (4.70-6.10); RED CELL DISTRIBUTION WIDTH 14.9 % (11.5-14.5); UNCORRECTED WBC 5.2 10^3/ul (4.8-10.8); WHITE BLOOD COUNT 5.2 10^3/ul (4.8-10.8)
[2016-11-24 06:53] LABS: ALBUMIN 3.1 g/dl (3.3-4.9)
[2016-11-24 06:56] LABS: BILIRUBIN,INDIRECT 0.2 mg/dl (0-1.1); BILIRUBIN,TOTAL 0.2 mg/dl (0.2-1.3); TOTAL PROTEIN 5.8 g/dl (6.1-8.1)
[2016-11-24 07:13] LABS: CONDITION 1; LH ANALYZER COMMENTS 1
[2016-11-24 08:00] VITALS: BP 158/97; RESP 20
[2016-11-24] MEDS: MULTIVITAMINS 10 ML, THIAMINE 100 MG, FOLIC ACID 1 MG in SOD CHLORIDE 0.9% 1,000 ML IVPB SCH (08:54)
[2016-11-24] MEDS: DOCUSATE SODIUM 100 MG CAP PO SCH (08:54)
[2016-11-24] MEDS: CHLORDIAZEPOXIDE 25 MG CAP PO SCH ×2 (08:55→12:10)
--- NOTE | 2016-11-24 11:33 | PDOCDIS ---
Discharge Instructions DIAGNOSIS Discharge Diagnosis: Alcoholic pancreatitis CONDITION Patient Condition: Stable HOME CARE INSTRUCTIONS: Diet Instructions: Regular ACTIVITY: Activity Restrictions: Slowly Increase Activity Rest between Activity OTHER ORDERS: Other Orders: You CANNOT drink any more alcohol. If you have already stopped, Good for you!!! . It is however an ongoing process. Further alcohol use will only worsen you pancreas and / or your liver. You should have been given resources to help you with quitting alcohol, if not please let someone know before you leave. Please use these resources and contact us or your PCP if you still have questions or concerns. VERONICA NDIAYE Nov 24, 2016 11:33
[2016-11-24] MEDS ORDERED: MULT-761 PO (11:36)
[2016-11-24] MEDS ORDERED: FOLI-49 PO (11:36)
[2016-11-24] MEDS ORDERED: THIA100T10 PO (11:36)
[2016-11-24] MEDS ORDERED: CHLO25CA9 PO (11:36)
[2016-11-24] MEDS ORDERED: PANT40TA4 PO (11:36)
[2016-11-24] MEDS ORDERED: DOCU-144 PO (11:36)
[2016-11-24] MEDS ORDERED: HYDR-3498 PO (11:36)
[2016-11-25] MEDS ORDERED: PANTOPRAZOLE (EC) 40 MG TAB PO SCH (06:00)
--- NOTE | 2016-11-25 11:29 | DS ---
DATE OF ADMISSION: 11/21/2016 DATE OF DISCHARGE: 11/24/2016 PRESENTING COMPLAINT: Abdominal pain. ADMISSION DIAGNOSIS: 1. Acute pancreatitis secondary to #2. 2. Alcohol abuse. 3. Tobacco abuse. CONSULTS ON THE CASE: None. INTERVENTIONS: 1. Gallbladder ultrasound, 11/21/2016, unremarkable. 2. Abdominal pelvis CT showed stranding and edema located anterior to the pancreas consistent with an acute pancreatitis. 3. Mild extrahepatic biliary dilatation, poorly evaluated. Consider MRCP for more complete assessm ent if clinically appropriate. 4. Left posterior inferior perianal fistula, stable over time. HOSPITAL COURSE: Full details are available in chart for review. In summary, this is a 41-year-old male, known alcoholic, who presented with acute abdominal pain, and CT confirmed the presence of an acute pancreatitis. He was admitted and managed as per standard of care with n.p.o., IV H2 joe and PPI, as well as aggressive IV hydration. The patient's lipase levels were also trended. He wa s kept in-house for about 3 days, and as of today his lipase levels are normal, he is tolerating a r egular diet, and in my assessment is stable for discharge. He was seen by hospice social worker to provide resources to help with alcoholism, and I personally spoke with him extensively over the last 3 days of the need to quit drinking alcohol. The patient seems motivated to try. He has tried before and failed, but I have encouraged him that he just has to keep trying. He is a very pleasant young man, and at this point is stable for discharge. DISPOSITION: To home with family. He currently does not have his own place, but he resides with hi s cousins. ACTIVITY: As tolerated. RECOMMENDATION: Avoid complete alcohol use. DISCHARGE MEDICATIONS: 1. Librium p.o. t.i.d. to be tapered over the next 7 days as needed. 2. Colace 100 p.o. b.i.d. 3. Folic acid 1 mg p.o. daily. 4. [place] 5/325 every 4-6 hours as needed for pain. 5. Multivitamin 1 tablet daily. 6. Protonix 40 daily. 7. Thiamine 100 mg p.o. daily. RECOMMENDED DIET: Regular. ACTIVITIES: As tolerated. Overall time spent on counseling and discharge planning has been more than 40 minutes. Dictated By: VERONICA NDIAYE MD BA/NTS Conf#: [id number] DID#: [id number] CC: MICHELLE STRATTON MD;*End*
== END 2016-11-24 15:29 | disposition home or self-care (01) | DRG 440 ==
LOC: FTE 08:34 → PP2 17:07
PROVIDERS: ADMIT Family Medicine; ATTEND Family Medicine
DX: K85.90 Acute pancreatitis without necrosis or infection, unspecified (principal); F10.10 Alcohol abuse, uncomplicated; F12.90 Cannabis use, unspecified, uncomplicated; F17.210 Nicotine dependence, cigarettes, uncomplicated
CPT/HCPCS: 36415; 74176; 76705; 80048; 80053; 80076; 81003; 82150; 83690; 83735; 85025; 96374; 96375; 96376; C9113; J1170; J2270; J2405; J3411; J7030

== ENCOUNTER 2017-04-02 09:06 | Emergency (ER) | payer OTHER ==
[~2017-04-02] VITALS: Ht 175.3 cm; Wt 70.0 kg
[~2017-04-02 09:06] MED LIST: CHLO25CA9 PO; DOCU-144 PO; FOLI-49 PO; HYDR-3498 PO; MULT-761 PO; PANT40TA4 PO; THIA100T10 PO
[2017-04-02 09:08] VITALS: Ht 175.3 cm; Wt 70.0 kg
--- NOTE | 2017-04-02 09:53 | RADRPT ---
PROCEDURE: XR Right Hand CLINICAL INDICATION: Trauma, second and fourth digits TECHNIQUE: AP, oblique, and lateral radiographs were submitted. COMPARISON: None FINDINGS: Osseous structures: There is an interarticular avulsion off the dorsal base of the distal phalanx of the right second finger. The fragment is displaced dorsally and retracted proximally by approximat hao 2 mm. There is a tiny cortical avulsion off the dorsal base of the distal phalanx of the right fourth finger. Joint spaces: are well maintained, with no significant spurring, erosion or joint effusion evident. Soft tissues: There is soft tissue swelling about the distal interphalangeal joints of the second an d fourth fingers. IMPRESSION: 1. Interarticular fracture resulting in avulsion of the dorsal base of the distal phalanx of the ri ght second finger. 2. Tiny cortical avulsion off the dorsal base of the distal phalanx of the right fourth finger. Physician Jimi Date Time Electronically viewed and signed by Physician Jimi on 04/02/2017 09:52 /
[2017-04-02] MEDS ORDERED: IBUP-1542 PO (10:00)
[2017-04-02] MEDS ORDERED: HYDROCODONE/APAP (5/325) TAB PO ONE (10:00)
[2017-04-02] MEDS ORDERED: ACET1TAB40 PO (10:00)
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
== END 2017-04-02 10:23 | disposition home or self-care (01) ==
LOC: FTE 09:06
DX: S62.630A Displaced fracture of distal phalanx of right index finger, initial encounter for closed fracture (principal); S62.634A Displaced fracture of distal phalanx of right ring finger, initial encounter for closed fracture; X58.XXXA Exposure to other specified factors, initial encounter; Y92.9 Unspecified place or not applicable
CPT/HCPCS: 29130; 73130; Z7610

== ENCOUNTER 2017-08-19 12:20 | Emergency (ER) | payer OTHER ==
[~2017-08-19] VITALS: Ht 175.3 cm; Wt 73.0 kg
[~2017-08-19 12:20] MED LIST changes: +ACET1TAB40 PO; +IBUP-1542 PO
[2017-08-19 12:21] VITALS: Ht 175.3 cm; Wt 73.0 kg
[2017-08-19] MEDS ORDERED: PHEN177S43 MT (13:43)
[2017-08-19] MEDS ORDERED: IBUP-1542 PO (13:43)
--- NOTE | 2017-08-19 18:32 | ERD ---
ER Documentation Chief Complaint Chief Complaint sore throat x 3 days HPI Patient is a 42-year-old male presenting to the emergency department with complaints of worsening, constant, sore throat ongoing intermittently for the past 3 days. The patient states he went to [facility] earlier today and refused IM injections. He denies fevers, chills, or other symptoms at this time. ROS All systems reviewed and are negative except as per history of present illness. Medications Home Meds Active Scripts Ibuprofen* (Motrin*) 600 Mg Tab, 600 MG PO Q6, #30 TAB Prov:NATTY CURIEL PA-C 08/19/17 Phenol* (Chloraseptic* [place]) 177 Ml [place].pump, 2 SPRAY MT Q2H Y for SORE THROAT, #1 BOTTLE Prov:NATTY CURIEL PA-C 08/19/17 Acetaminophen with Codeine (Acetaminophen-Cod #3 Tablet) 1 Each Tablet, 1 TAB PO Q6H Y for PAIN, #12 TAB Prov:RUBEN DE LA GARZA MD 04/02/17 Ibuprofen* (Motrin*) 600 Mg Tab, 600 MG PO Q6, #20 TAB Prov:RUBEN DE LA GARZA MD 04/02/17 Docusate Sodium* (Colace*) 100 Mg Capsule, 100 MG PO BID, #14 CAP Prov:VERONICA NDIAYE 11/24/16 Hydrocodone Bit-Acetaminophen (Hydrocodone Bit-APAP) 5-325MG Tablet, 1 TAB PO Q6H Y for pain, #14 TAB Prov:VERONICA NDIAYE 11/24/16 Chlordiazepoxide* (Chlordiazepoxide*) 25 Mg Capsule, 10 MG PO TID for 7 Days, CAP Prov:VERONICA NDIAYE 11/24/16 Thiamine* (Thiamine*) 100 Mg Tablet, 100 MG PO DAILY for 30 Days, TAB 1 Refill Prov:VERONICA NDIAYE 11/24/16 Pantoprazole (Protonix) 40 Mg Tabec, 40 MG PO DAILY for 7 Days, TAB Prov:VERONICA NDIAYE 11/24/16 Folic Acid* (Folic Acid*) 1 Mg Tablet, 1 MG PO DAILY for 30 Days, TAB 1 Refill Prov:VERONICA NDIAYE 11/24/16 Multivitamin (MULTI VITAMIN DAILY) 1 Each Tablet, 1 TAB PO DAILY for 30 Days, TAB 2 Refills Prov:VERONICA NDIAYE 11/24/16 Allergies Allergies: Coded Allergies: No Known Allergy (Unverified , 07/05/16) PMhx/Soc History of Surgery: No Anesthesia Reaction: No (Dont know) Hx Neurological Disorder: Yes (Migraines (once a week)) Hx Respiratory Disorders: Yes (productive cought, asthma) Hx Cardiac Disorders: No Hx Psychiatric Problems: Yes (bipolar, anxiety, depression) Hx Miscellaneous Medical Probl: No Hx Alcohol Use: Yes Hx Substance Use: Yes Hx Tobacco Use: Yes Smoking Status: Unknown if ever smoked Physical Exam Vitals Vital Signs Date Time Temp Pulse Resp B/P Pulse Ox O2 Delivery O2 Flow Rate FiO2 08/19/17 12:21 98.0 63 18 121/78 100 Physical Exam Const: Nontoxic, well-appearing male in no acute distress. Head: Atraumatic Eyes: Normal Conjunctiva ENT: Normal External Ears, Nose and Mouth. Mild erythema to the pharynx, but no tonsillar hypertrophy or exudate noted. Skin: No petechiae or rashes Ext: No cyanosis, or edema Neur: Awake and alert Psych: Normal Mood and Affect Procedures/MDM 42-year-old male presents to the emergency department with complaints of sore throat. Rapid strep was negative. The patient's symptoms are likely secondary to a viral pharyngitis. The patient was stable for outpatient management with prescriptions. He is to follow-up with his primary care physician within 1-2 days. He may return sooner for any new or worsening symptoms. Departure Diagnosis: Primary Impression: Sore throat Condition: Fair Patient Instructions: Self-Care for Sore Throats Additional Instructions: Follow up with your PCP within the next 1-3 days for a repeat evaluation. If you require a referral to a specialist, your Primary Care Provider may be able to provide this for you. In most patient cases, a referral is not required. If you have further questions regarding this matter, please ask your Primary Care Provider. Return the the emergency department immediately if symptoms worsen or change. If you have any questions regarding medications, ask your pharmacist or us before you leave. If any adverse reactions, occur while taking your medications, discontinue the treatment and return to the emergency department immediately. If any new or worsening symptoms, uncontrolled fevers, or other unexplained symptoms occur, return to the emergency department immediately. Take your medications as directed, and complete the entire course of treatment. NATTY CURIEL PA-C Aug 19, 2017 18:32
== END 2017-08-19 13:57 | disposition home or self-care (01) ==
LOC: FTE 12:20
DX: J02.9 Acute pharyngitis, unspecified (principal); J45.909 Unspecified asthma, uncomplicated; Z87.891 Personal history of nicotine dependence
CPT/HCPCS: 87880; Z7502; 99283

== ENCOUNTER 2018-04-23 01:03 | Emergency (ER) | END 2018-04-23 03:35 | disposition home or self-care (01) ==